=== PATIENT | female | born 2000 | race American Indian/Alaskan Native ===

== ENCOUNTER → 2018-09-26 | Outpatient (CLI) | payer OTHER ==
[2018-09-26 18:46] LABS: BASOPHILS ABSOLUTE AUTO 0.07 K/mm3 (0.00-0.23); BASOPHILS PERCENT AUTO 1 % (0-2); EOSINOPHILS PERCENT AUTO 3 % (0-6); Hematocrit 38.5 % (33.0-51.0); Hemoglobin 12.7 g/dL (11.5-16.0); IMMATURE GRAN ABSOLUTE AUTO 0.01 K/mm3 (0.00-0.10); IMMATURE GRAN PERCENT AUTO 0 % (0-1); LYMPHOCYTES ABSOLUTE AUTO 2.43 K/mm3 (0.84-5.20); LYMPHOCYTES PERCENT AUTO 33 % (21-46); MONOCYTES ABSOLUTE AUTO 0.75 K/mm3 (0.16-1.47); MONOCYTES PERCENT AUTO 10 % (4-13); Mean Corpuscular HGB 30.9 pg (26.0-34.0); Mean Corpuscular Volume 94 fL (80-100); Mean Platelet Volume 11.5 fL (9.1-12.4); NEUTROPHILS ABSOLUTE AUTO 3.94 K/mm3 (1.96-9.15); NEUTROPHILS PERCENT AUTO 53 % (41-73); Platelet Count 240 K/mm3 (150-400); RDW Coefficient Variation 12.2 % (11.7-14.2); RDW Standard Deviation 42.6 fL (35.1-46.3); Red Blood Cell Count 4.11 M/mm3 (3.80-5.20)
== END ==
LOC: LAB SHORT 18:09 → LAB 18:09
PROVIDERS: Registered Nurse Community Health
DX: O03.9 Complete or unspecified spontaneous abortion without complication (principal)
CPT/HCPCS: 84702; 85025

== ENCOUNTER → 2021-06-13 | Outpatient (CLI) | payer OTHER | END | disposition home or self-care (01) | LOC: LAB SHORT 14:45 | DX: R10.2 Pelvic and perineal pain (principal) | CPT/HCPCS: 87086 ==

== ENCOUNTER → 2021-06-16 | Outpatient (CLI) | payer OTHER ==
[2021-06-18 04:07] LABS: CHLAMYDIA TRACHOMATIS, NAA Negative (Negative)
== END ==
LOC: LAB SHORT 15:29
PROVIDERS: Physician Assistant
DX: Z11.3 Encounter for screening for infections with a predominantly sexual mode of transmission (principal)
CPT/HCPCS: 87491; 87591

== ENCOUNTER → 2023-04-22 | Outpatient (CLI) | payer BC ==
[2023-04-22 11:54] LABS: Source, Urine Clean Catch
[2023-04-22 13:03] LABS: Appearance, Urine Hazy (Clear); Bilirubin, Urine Neg (Neg); Blood, Urine Neg (Neg); Color, Urine Yellow (P-Yellow); Glucose Qualitative, Urine Neg (Neg); Ketones, Urine Neg (Neg); Leukocyte Esterase, Urine Neg (Neg); Nitrite, Urine Neg (Neg); Protein, Urine Neg (Neg); Urobilinogen, Urine NORM (Normal)
[2023-04-22 13:39] LABS: Mucus Heavy (0-Heavy); Squamous Epithelial Cells Many /hpf (Few)
[2023-04-22 13:40] LABS: Bacteria Few /hpf; Red Blood Cells, Urine 0-2 /hpf (0-2)
== END | disposition home or self-care (01) ==
LOC: LAB 11:00 → LAB SHORT 11:00
PROVIDERS: Registered Nurse Community Health
DX: Z34.91 Encounter for supervision of normal pregnancy, unspecified, first trimester (principal)
CPT/HCPCS: 81001; 87086

== ENCOUNTER → 2023-05-08 | Outpatient (CLI) | payer BC ==
[2023-05-10 20:44] LABS: APTIMA MEDIA TYPE Urine; C. TRACHOMATIS BY TMA Negative (Negative); N. GONORRHOEAE BY TMA Negative (Negative); SPECIMEN SOURCE Urine
== END ==
LOC: LAB 17:21 → LAB SHORT 17:21
PROVIDERS: Registered Nurse Community Health
DX: Z34.81 Encounter for supervision of other normal pregnancy, first trimester (principal); Z3A.00 Weeks of gestation of pregnancy not specified
CPT/HCPCS: 87491; 87591

== ENCOUNTER → 2023-09-09 | Outpatient (CLI) | payer BC ==
[2023-09-09 14:32] LABS: Hematocrit 32.8 % (33.0-51.0); Hemoglobin 11.2 g/dL (11.5-16.0)
== END ==
LOC: LAB SHORT 13:21 → LAB 13:21
PROVIDERS: Registered Nurse Community Health
DX: Z34.93 Encounter for supervision of normal pregnancy, unspecified, third trimester (principal)
CPT/HCPCS: 82950; 85014; 85018

== ENCOUNTER 2023-12-03 14:39 | Inpatient (IN) | payer BC, OTHER ==
[~2023-12-03] VITALS: Ht 157.5 cm; Wt 73.5 kg
[2023-12-03] VITALS (24 sets, daily range): BP systolic 112–158; BP diastolic 66–91
[2023-12-03] MEDS ORDERED: OXYTOCIN/RINGER'S LACTATE 500 ML IV PRN (15:15)
[2023-12-03] MEDS ORDERED: Ondansetron HCl 2 MG / ML 2ML Vial IV PRN (15:15)
[2023-12-03] MEDS ORDERED: Tranexamic Acid 100 ML IV SCH (15:15)
[2023-12-03] MEDS ORDERED: Oxytocin 10 Unit / ML Vial IM PRN (15:15)
[2023-12-03] MEDS ORDERED: Misoprostol 200 MCG Tab BC PRN (15:15)
[2023-12-03] MEDS ORDERED: Misoprostol 200 MCG Tab PR PRN (15:15)
[2023-12-03] MEDS ORDERED: Penicillin G Potassium 5,000,000 UNITS in NS 250 ML IV ONE (15:15)
[2023-12-03] MEDS ORDERED: Carboprost Tromethamine 250 MCG/ML 1ML Amp IM PRN (15:15)
[2023-12-03] MEDS ORDERED: Methylergonovine Maleate 0.2MG / ML 1ML Amp IM PRN (15:15)
[2023-12-03] MEDS ORDERED: Lactated Ringer's 1,000 ML IV PRN (15:15)
[2023-12-03] MEDS ORDERED: Acetaminophen 500 MG Tab PO PRN (15:15)
[2023-12-03] MEDS ORDERED: Calcium Carbonate 500 MG Tab Chew PO SCH (15:20)
[2023-12-03] MEDS ORDERED: FentaNYL 2mcg/ml-Bup 0.1% Epd 250 ML EPI PRN (15:30)
[2023-12-03] MEDS ORDERED: Lactated Ringer's 1,000 ML IV SCH ×2 (15:30)
[2023-12-03] MEDS ORDERED: ePHEDrine Sulfate 50 MG/ML 1ML Injection XX PRN (15:30)
[2023-12-03] MEDS ORDERED: FentaNYL Citrate 50 MCG/ML 2 ML Injection IV PRN (15:35)
[2023-12-03] MEDS ORDERED: PRENATAL TABLE1 EAC2 PO (16:04)
[2023-12-03] MEDS ORDERED: PANTOPRAZOLE SO20 M1 PO (16:04)
[2023-12-03 16:10] LABS: BASOPHILS ABSOLUTE AUTO 0.04 K/mm3 (0.00-0.23); BASOPHILS PERCENT AUTO 0 % (0-2); EOSINOPHILS ABSOLUTE AUTO 0.04 K/mm3 (0.00-0.68); EOSINOPHILS PERCENT AUTO 0 % (0-6); Hematocrit 35.2 % (33.0-51.0); Hemoglobin 12.2 g/dL (11.5-16.0); IMMATURE GRAN ABSOLUTE AUTO 0.11 K/mm3 (0.00-0.10); IMMATURE GRAN PERCENT AUTO 1 % (0-1); LYMPHOCYTES ABSOLUTE AUTO 1.37 K/mm3 (0.84-5.20); LYMPHOCYTES PERCENT AUTO 13 % (21-46); MONOCYTES ABSOLUTE AUTO 0.86 K/mm3 (0.16-1.47); MONOCYTES PERCENT AUTO 8 % (4-13); Mean Corpuscular HGB 31.2 pg (26.0-34.0); Mean Corpuscular HGB Conc 34.7 g/dL (31.5-36.5); Mean Corpuscular Volume 90 fL (80-100); NEUTROPHILS ABSOLUTE AUTO 8.35 K/mm3 (1.96-9.15); NEUTROPHILS PERCENT AUTO 78 % (41-73); Platelet Count 154 K/mm3 (150-400); RDW Coefficient Variation 12.5 % (11.7-14.2); RDW Standard Deviation 40.9 fL (35.1-46.3); Red Blood Cell Count 3.91 M/mm3 (3.80-5.20); White Blood Cell Count 10.77 K/mm3 (4.00-11.30)
[2023-12-03] MEDS ORDERED: Pantoprazole Sodium 40 MG Injection IV PRN (16:40)
[2023-12-03] MEDS ORDERED: Penicillin G Potassium 2,500,000 UNITS in Dextrose 5% 100 ML IV SCH (19:30)
[2023-12-04] VITALS (23 sets, daily range): BP systolic 99–134; BP diastolic 54–84
[2023-12-04] MEDS ORDERED: Naloxone HCl 0.4MG / ML 1ML Vial IV PRN (03:05)
[2023-12-04] MEDS ORDERED: ePHEDrine Sulfate 50 MG/ML 1ML Injection IV PRN (03:05)
[2023-12-04] MEDS ORDERED: DiphenhydrAMINE HCl 50 MG/ML 1ML Vial IV PRN (03:05)
[2023-12-04] MEDS ORDERED: Ondansetron HCl 2 MG / ML 2ML Vial IV PRN (03:05)
[2023-12-04] MEDS ORDERED: Metoclopramide HCl 5MG / ML 2ML Vial IV PRN ×2 (03:10→04:10)
[2023-12-04] MEDS ORDERED: Lactated Ringer's 1,000 ML IV SCH (03:25)
[2023-12-04] MEDS ORDERED: Terbutaline Sulfate 1MG / ML 1 ML Amp SC ONE (03:55)
[2023-12-04] MEDS ORDERED: Terbutaline Sulfate 1MG / ML 1 ML Amp ONE (03:55)
[2023-12-04] MEDS ORDERED: CeFAZolin Sodium 2,000 MG in NS 100 ML IV SCH (04:05)
[2023-12-04] MEDS ORDERED: Citric Acid/Sodium Citrate 30 ML BTL PO PRN (04:10)
[2023-12-04] MEDS ORDERED: Azithromycin 500 MG in NS 250 ML IV SCH (04:11)
[2023-12-04] MEDS ORDERED: FentaNYL Citrate 50 MCG/ML 2 ML Injection ONE (05:02)
[2023-12-04] MEDS ORDERED: Morphine Sulfate/PF 1 MG/ML 10MLVIAL ONE (05:04)
[2023-12-04] MEDS ORDERED: Lidocaine 2%-Epineph 1:200000 20 ML SDV ONE (05:04)
[2023-12-04] MEDS ORDERED: Oxytocin 10 Unit / ML Vial ONE ×2 (05:22→06:17)
[2023-12-04] MEDS ORDERED: CeFAZolin Sodium 1000 mg Vial ONE (05:22)
[2023-12-04] MEDS ORDERED: Ondansetron HCl 2 MG / ML 2ML Vial ONE (05:26)
[2023-12-04] MEDS ORDERED: Dexamethasone Sod Phos 10 MG/ML 1ML VIAL ONE (05:26)
--- NOTE | 2023-12-04 05:51 | NUR ---
12/04/23 0551 [employer] EPIDURAL AND CASTILLO CATH IN PLACE PRIOR TO ARRIVAL TO OR. BABY BOY BORN AT 0535. CORD SEGMENT SENT WITH MITCHELL RT. CORD BLOOD SENT WITH ALIA RN. 20 G IV STARTED BY THIS RN IN RIGHT HAND.
[2023-12-04 05:55] LABS: PCO2 Cord - Arterial 58.7 mmHg (40-50); PO2 Cord - Arterial < 14.0 mmHg (16-20)
[2023-12-04 05:59] LABS: PCO2 Cord - Venous 47.5 mmHg (40-50); PO2 Cord - Venous 21.5 mmHg (28-32); pH Umbilical Cord - Venous 7.28 (7.26-7.35)
[2023-12-04] MEDS ORDERED: Magnesium Hydroxide Conc 10 ML UDC PO PRN (06:15)
[2023-12-04] MEDS ORDERED: Ketorolac Tromethamine 30mg Vial ONE (06:17)
[2023-12-04] MEDS ORDERED: Acetaminophen 500 MG Tab PO PRN (06:20)
[2023-12-04] MEDS ORDERED: OxyCODONE HCL 5 MG TAB PO PRN (06:20)
[2023-12-04] MEDS ORDERED: Lanolin Cream TOP PRN (06:20)
[2023-12-04] MEDS ORDERED: Simethicone 80 MG Chew PO PRN (06:20)
[2023-12-04] MEDS ORDERED: HydrOXYzine Pamoate 25 MG Cap PO PRN (06:25)
[2023-12-04] MEDS ORDERED: OxyCODONE 5 mg/Acetamin 325 mg TABLET PO PRN (06:25)
[2023-12-04] MEDS ORDERED: Ketorolac Tromethamine 30mg Vial IV SCH (07:00)
--- NOTE | 2023-12-04 07:51 | NUR ---
HOLDING NB. DENIES PAIN AT THIS TIME. ELENA POS WELL
[2023-12-04] MEDS ORDERED: Ibuprofen 400 MG Tab PO SCH (08:00)
[2023-12-04] MEDS ORDERED: Prenatal Vit/FE Fumarate/FA 1 Tab PO SCH (09:00)
[2023-12-04] MEDS ORDERED: Docusate Sodium 100 MG Cap PO SCH (09:00)
--- NOTE | 2023-12-04 09:10 | NUR ---
KIERA CARE DONE, LINENS CHANGED. PT DESIRES TO SLEEP. WILL CALL IF AWAKE BEFORE 1100. OTHERWISE, PLAN IS TO FEED NB AT 1100. PT DENIES PAIN.
--- NOTE | 2023-12-04 11:09 | NUR ---
AWAKEN TO FEED NB. PT AWAKE AND ALERT. SPONGE BATH DONE IN BED. ORAL CARE DONE, KIERA CARE DONE. PT REPORTS PAIN /. ELENA WELL AT THIS TIME. PLAN TO MEET WITH LC TO WORK ON BF.
--- NOTE | 2023-12-04 17:13 | NUR ---
1700: PT UP OOB TO CHAIR. ELENA WELL. KIERA CARE DONE. PT EATING DINNER UP IN CHAIR. DENIES PAIN.
--- NOTE | 2023-12-04 18:27 | NUR ---
PT REMAINS UP OOB IN CHAIR. ELENA WELL. VISITING WITH FAMILY. DESIRES TO STAY UP IN CHAIR
[2023-12-05] MEDS ORDERED: Ketorolac Tromethamine 30mg Vial IV ONE ×2 (00:45→00:55)
[2023-12-05 08:53] LABS: BASOPHILS ABSOLUTE AUTO 0.03 K/mm3 (0.00-0.23); BASOPHILS PERCENT AUTO 0 % (0-2); EOSINOPHILS ABSOLUTE AUTO 0.03 K/mm3 (0.00-0.68); EOSINOPHILS PERCENT AUTO 0 % (0-6); Hematocrit 24.4 % (33.0-51.0); Hemoglobin 8.3 g/dL (11.5-16.0); IMMATURE GRAN ABSOLUTE AUTO 0.08 K/mm3 (0.00-0.10); IMMATURE GRAN PERCENT AUTO 1 % (0-1); LYMPHOCYTES ABSOLUTE AUTO 1.46 K/mm3 (0.84-5.20); LYMPHOCYTES PERCENT AUTO 14 % (21-46); MONOCYTES ABSOLUTE AUTO 0.67 K/mm3 (0.16-1.47); MONOCYTES PERCENT AUTO 6 % (4-13); Mean Corpuscular HGB 31.8 pg (26.0-34.0); Mean Corpuscular Volume 94 fL (80-100); NEUTROPHILS ABSOLUTE AUTO 8.53 K/mm3 (1.96-9.15); NEUTROPHILS PERCENT AUTO 79 % (41-73); Platelet Count 104 K/mm3 (150-400); RDW Coefficient Variation 12.5 % (11.7-14.2); RDW Standard Deviation 42.5 fL (35.1-46.3); Red Blood Cell Count 2.61 M/mm3 (3.80-5.20)
[2023-12-05 09:13] VITALS: BP 129/81
[2023-12-05] MEDS ORDERED: IBUP800 PO (11:17)
[2023-12-05] MEDS ORDERED: OXAYDO5 M1 PO (11:18)
[2023-12-05 13:16] VITALS: BP 119/74
--- NOTE | 2023-12-05 14:57 | NUR ---
DISCHARGE TEACHINGS TEACHING PROVIDED. LONNY ARMENTA VISITED DURING TEACHING, STATED SHE WOULD PUT IN DC ORDER. VERIFIED PERCOCET AND IBUPROFEN ORDERED AT PHARMACY OF CHOICE. PT AND VERBALIZED UNDERSTANDING OF TEACHING AND DENY ANY FURTHER QUESTIONS. FOLLOW UP APPOINTMENT SCHEDULED FOR 12/16/23 WITH LONNY ARMENTA. ENCOURAGED PT TO REACH OUT TO OCCUP THERAPIST AT [facility] FOR HELP WITH PUMPING WHEN RETURNING TO WORK.
[2023-12-05 16:18] VITALS: BP 125/79
--- NOTE | 2023-12-05 16:40 | NUR ---
dc WHEELED PT OUT TO CAR. SEATBELT ENGAGED. PT DENIED ANY FURTHER QUESTIONS.
--- NOTE | 2023-12-05 18:14 | NUR ---
agree with assessment
--- NOTE | 2023-12-06 14:21 | NUR ---
late entry, pt scored at 15 on depressin screen, when she did the screen she was thinking about her pre counseling, and not current. oanh montero cnm went in and talked with her and cleared her, she made her an appt for dec 15 at 1100 for followup. isauro mckeon was going to chart this as a provider that saw the patient, she saw the pt the night of the score and then again the next morning and then again after lunch time before pt went home.
== END 2023-12-05 16:30 | disposition home or self-care (01) | DRG 788 ==
LOC: BC 14:39 → OBS 14:39 → BC 15:00 → OBS 15:27 → BC 15:28
PROVIDERS: Family Medicine; ADMIT Registered Nurse Community Health
PROC: 10D00Z1 Extraction of Products of Conception, Low, Open Approach (ICD-10-PCS; principal; 2023-12-03)
PROC: 4A033R1 Measurement of Arterial Saturation, Peripheral, Percutaneous Approach (ICD-10-PCS; 2023-12-03)
DX: O80 Encounter for full-term uncomplicated delivery (principal); Z91.040 Latex allergy status; Z88.2 Allergy status to sulfonamides; Z67.10 Type A blood, Rh positive; Z37.0 Single live birth; Z79.899 Other long term (current) drug therapy; Z3A.40 40 weeks gestation of pregnancy; O47.1 False labor at or after 37 completed weeks of gestation
CPT/HCPCS: 36415; 51702; 59025; 81003; 82803; 85025; 86850; 86900; 86901; 99214; A9270; J0690; J1100; J1885; J2274; J2405; J2540; J2590; J3010; J3105; J7050; J7120

== ENCOUNTER → 2025-01-05 | Outpatient (CLI) | payer BC, OTHER ==
[~2025-01-05] MED LIST: IBUP800 PO; OXAYDO5 M1 PO; PANTOPRAZOLE SO20 M1 PO; PRENATAL TABLE1 EAC2 PO
[2025-01-06 15:52] LABS: HEPATITIS B SURFACE ANTIBODY 42.86 IU/L
[2025-01-07 01:58] LABS: HCV QNT BY NAAT (IU/ML) Not Detected; HCV QNT BY NAAT (LOG IU/ML) Not Detected; HCV QNT BY NAAT INTERP Not Detected (Not Detected)
[2025-01-07 10:43] LABS: HIV 1,2 COMBO ANTIGEN/ANTIBODY Negative (Negative)
== END ==
LOC: LAB 16:18 → LAB SHORT 16:18
PROVIDERS: Chiropractor
DX: Z20.9 Contact with and (suspected) exposure to unspecified communicable disease (principal)
CPT/HCPCS: 84460; 87340; 87389; 87522